=== PATIENT | male | born 2000 | race African-American/Black ===

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

== ENCOUNTER 2024-09-02 10:01 | Outpatient (CLI) | payer BC, OTHER, SELFPAY ==
--- NOTE | ~2024-09-02 | MR_ITS ---
MRI of the brain Clinical History: Visual disturbance Technique: Axial and sagittal T1-weighted images were acquired. These were followed by axial T2-weigh maninder, diffusion weighted, gradient, and FLAIR images. Findings: No signal abnormality seen in the brain parenchyma. No acute infarct, intracranial hemorrha ge, or mass lesion. Ventricles and subarachnoid spaces are unremarkable. Orbits are unremarkable. Paranasal sinuses and m astoid air cells are essentially clear. Major intracranial flow voids appear intact. Sagittal midline structures are intact. IMPRESSION: No significant abnormality identified. Reviewed, dictated and finalized at location M.
== END 2024-09-02 10:02 | disposition home or self-care (01) ==
LOC: MICIMG 10:03
PROVIDERS: PCP Family Medicine; Visit Provider Nurse Practitioner Adult Health
DX: H53.9 Unspecified visual disturbance (principal); R51.9 Headache, unspecified; H53.8 Other visual disturbances
CPT/HCPCS: 70551